=== PATIENT | male | born 1985 | race Caucasian/White ===

== ENCOUNTER 2016-11-24 01:57 | Observation (INO) | payer OTHER ==
[2016-11-24] MEDS ORDERED: Sodium Chloride 0.9% 1,000 ML IV ONE (02:33)
[2016-11-24] MEDS ORDERED: Pantoprazole 80 MG in Sodium Chloride 0.9% 10 ML IVPUSH ONE (02:33)
[2016-11-24] MEDS ORDERED: Sodium Chloride 0.9% 2.5 ML Syringe FLUSH PRN (02:37)
[2016-11-24] MEDS ORDERED: Sodium Chloride 0.9% 10 ML Syringe FLUSH PRN (02:37)
--- NOTE | 2016-11-24 02:37 | EDM.PDOC ---
ED HPI GENERAL MEDICAL PROBLEM - General Chief Complaint: Gastrointestinal Problem Stated Complaint: VOMITING BLOOD Time Seen by Provider: 11/24/16 02:33 - History of Present Illness INITIAL COMMENTS - FREE TEXT/NARRATIVE: HISTORY AND PHYSICAL: History of present illness: Patient's 31-year-old white male history of alcohol abuse who presents with a concern of vomiting blood he states this was a large amount as witnessed by his fiance has had intermittent black stools he states is long-standing problem over years. He does agree to evaluation treatment and admission if indicated Review of systems: As per history of present illness and below otherwise all systems reviewed and negative. Past medical history: As per history of present illness and as reviewed below otherwise noncontributory. Surgical history: As per history of present illness and as reviewed below otherwise noncontributory. Social history: No reported history of drug or alcohol abuse. Family history: As per history of present illness and as reviewed below otherwise noncontributory. Physical exam: HEENT: Atraumatic, normocephalic, pupils reactive, negative for conjunctival pallor or scleral icterus, mucous membranes moist, throat clear, neck supple, nontender, trachea midline. Lungs: Clear to auscultation, breath sounds equal bilaterally, chest nontender. Heart: S1S2, regular, negative for clicks, rubs, or JVD. Abdomen: Soft, nondistended, nontender. Negative for masses or hepatosplenomegaly. Negative for costovertebral tenderness. Pelvis: Stable nontender. Genitourinary: Deferred. Rectal: Deferred. Extremities: Atraumatic, negative for cords or calf pain. Neurovascular unremarkable. Neuro: Awake, alert, oriented. Cranial nerves II through XII unremarkable. Cerebellum unremarkable. Motor and sensory unremarkable throughout. Exam nonfocal. Diagnostics: CBC CMP PT/INR EtOH chest x-ray type and screen Therapeutics: NG tube Protonix 80 mg IV saline 1 L bolus Impression: #1 GI bleed Definitive disposition and diagnosis as appropriate pending reevaluation and review of above. - Related Data Allergies Allergy/AdvReac Type Severity Reaction Status Date / Time No Known Allergies Allergy Verified 11/24/16 02:18 Home Meds: Home Meds . [No Known Home Meds] 11/24/16 [History] Past Medical History - Past Health History Medical/Surgical History: Denies Medical/Surgical History HEENT History: Reports: None Cardiovascular History: Reports: None Respiratory History: Reports: None Gastrointestinal History: Reports: None Genitourinary History: Reports: None Musculoskeletal History: Reports: None Neurological History: Reports: None Psychiatric History: Reports: None Endocrine/Metabolic History: Reports: None Hematologic History: Reports: None Dermatologic History: Reports: None - Infectious Disease History Infectious Disease History: Reports: None - Past Surgical History Male Surgical History: Reports: None Social & Family History - Family History Family Medical History: Noncontributory - Tobacco Use Smoking Status *Q: Current Every Day Smoker Years of Tobacco use: 10 Packs/Tins Daily: 1 - Recreational Drug Use Recreational Drug Use: No ED ROS GENERAL - Review of Systems Review Of Systems: ROS reveals no pertinent complaints other than HPI. ED EXAM, GENERAL - Physical Exam Exam: See Below (See dictation) Course - Vital Signs Last Recorded V/S: Last Vital Signs Temp 35.7 C 11/24/16 02:18 Pulse 72 11/24/16 02:18 Resp 20 11/24/16 02:18 BP 131/83 11/24/16 02:18 Pulse Ox 96 11/24/16 02:18 - Orders/Labs/Meds Orders: Active Orders 24 hr Category Date Time Status Abdomen 1V Flat [CR] Stat Exams 11/24/16 02:33 Ordered Sodium Chloride 0.9% [Saline Flush] Med 11/24/16 02:37 Active 10 ml FLUSH ASDIRECTED PRN Sodium Chloride 0.9% [Saline Flush] Med 11/24/16 02:37 Active 2.5 ml FLUSH ASDIRECTED PRN NG [Nasogastric Orogastric Tube Insertion] [OM.PC] Stat Oth 11/24/16 02:35 Ordered Saline Lock Insert [OM.PC] Stat Oth 11/24/16 02:37 Ordered Medication Orders Sodium Chloride (Saline Flush) 10 ml FLUSH ASDIRECTED PRN PRN Reason: Keep Vein Open Last Admin: 11/24/16 02:50 Dose: 10 ml Sodium Chloride (Saline Flush) 2.5 ml FLUSH ASDIRECTED PRN PRN Reason: Keep Vein Open Last Admin: 11/24/16 02:51 Dose: 2.5 ml Labs: Laboratory Tests 11/24/16 11/24/16 11/24/16 Range/Units 02:47 02:47 02:47 WBC 9.90 (4.0-11.0) K/uL RBC 5.01 (4.50-5.90) M/uL Hgb 16.2 (13.0-17.0) g/dL Hct 47.9 (38.0-50.0) % MCV 95.6 (80.0-98.0) fL MCH 32.3 H (27.0-32.0) pg MCHC 33.8 (31.0-37.0) g/dL RDW Std Deviation 44.6 (28.0-62.0) fl RDW Coeff of Tory 13 (11.0-15.0) % Plt Count 224 (150-400) K/uL MPV 11.50 (7.40-12.00) fL Neut % (Auto) 58.4 (48.0-80.0) % Lymph % (Auto) 27.9 (16.0-40.0) % Bracken % (Auto) 11.9 (0.0-15.0) % Eos % (Auto) 1.4 (0.0-7.0) % Baso % (Auto) 0.4 (0.0-1.5) % Neut # (Auto) 5.8 H (1.4-5.7) K/uL Lymph # (Auto) 2.8 H (0.6-2.4) K/uL Bracken # (Auto) 1.2 H (0.0-0.8) K/uL Eos # (Auto) 0.1 (0.0-0.7) K/uL Baso # (Auto) 0.0 (0.0-0.1) K/uL Nucleated RBC % 0.0 /100WBC Nucleated RBCs # 0 K/uL INR 0.96 (0.86-1.11) Sodium 140 (136-146) mmol/L Potassium 3.4 L (3.5-5.1) mmol/L Chloride 105 (98-110) mmol/L Carbon Dioxide 25 (21-31) mmol/L BUN 9 (6.0-23.0) mg/dL Creatinine 1.0 (0.6-1.5) mg/dL Est Cr Clr Drug Dosing 137.36 mL/min Estimated GFR (MDRD) > 60.0 ml/min Glucose 129 H (60-110) mg/dL Calcium 9.0 (8.8-10.8) mg/dL Total Bilirubin 0.3 (0.1-1.5) mg/dL AST 45 H (5-40) IU/L ALT 60 H (8-54) IU/L Alkaline Phosphatase 83 (40-150) Total Protein 7.4 (6.0-8.0) g/dL Albumin 4.2 (3.5-5.0) g/dL Globulin 3.2 (2.0-3.5) g/dL Albumin/Globulin Ratio 1.3 (1.3-2.8) Lipase 69 (7-80) U/L Ethyl Alcohol 243.3 mg/dL Blood Type Antibody Screen 11/24/16 Range/Units 02:47 WBC (4.0-11.0) K/uL RBC (4.50-5.90) M/uL Hgb (13.0-17.0) g/dL Hct (38.0-50.0) % MCV (80.0-98.0) fL MCH (27.0-32.0) pg MCHC (31.0-37.0) g/dL RDW Std Deviation (28.0-62.0) fl RDW Coeff of Tory (11.0-15.0) % Plt Count (150-400) K/uL MPV (7.40-12.00) fL Neut % (Auto) (48.0-80.0) % Lymph % (Auto) (16.0-40.0) % Bracken % (Auto) (0.0-15.0) % Eos % (Auto) (0.0-7.0) % Baso % (Auto) (0.0-1.5) % Neut # (Auto) (1.4-5.7) K/uL Lymph # (Auto) (0.6-2.4) K/uL Bracken # (Auto) (0.0-0.8) K/uL Eos # (Auto) (0.0-0.7) K/uL Baso # (Auto) (0.0-0.1) K/uL Nucleated RBC % /100WBC Nucleated RBCs # K/uL INR (0.86-1.11) Sodium (136-146) mmol/L Potassium (3.5-5.1) mmol/L Chloride (98-110) mmol/L Carbon Dioxide (21-31) mmol/L BUN (6.0-23.0) mg/dL Creatinine (0.6-1.5) mg/dL Est Cr Clr Drug Dosing mL/min Estimated GFR (MDRD) ml/min Glucose (60-110) mg/dL Calcium (8.8-10.8) mg/dL Total Bilirubin (0.1-1.5) mg/dL AST (5-40) IU/L ALT (8-54) IU/L Alkaline Phosphatase (40-150) Total Protein (6.0-8.0) g/dL Albumin (3.5-5.0) g/dL Globulin (2.0-3.5) g/dL Albumin/Globulin Ratio (1.3-2.8) Lipase (7-80) U/L Ethyl Alcohol mg/dL Blood Type O POSITIVE Antibody Screen NEGATIVE Meds: Medications Generic Name Dose Route Start Last Admin Trade Name Kayley PRN Reason Stop Dose Admin Sodium Chloride 10 ml 11/24/16 02:37 11/24/16 02:50 Saline Flush FLUSH 10 ml ASDIRECTED PRN Administration Keep Vein Open Sodium Chloride 2.5 ml 11/24/16 02:37 11/24/16 02:51 Saline Flush FLUSH 2.5 ml ASDIRECTED PRN Administration Keep Vein Open Discontinued Medications Generic Name Dose Route Start Last Admin Trade Name Kayley PRN Reason Stop Dose Admin Pantoprazole Sodium 80 mg/ 10 mls @ 300 mls/hr 11/24/16 02:33 11/24/16 03:17 Sodium Chloride IVPUSH 11/24/16 02:34 300 mls/hr NOW ONE Administration Sodium Chloride 1,000 mls @ 999 mls/hr 11/24/16 02:33 11/24/16 03:05 Normal Saline IV 11/24/16 03:33 999 mls/hr STAT ONE Administration Lorazepam 1 mg 11/24/16 02:44 11/24/16 03:40 Ativan IVPUSH 11/24/16 02:45 Not Given ONETIME ONE Departure - Departure Time of Disposition: 03:50 Disposition: Refer to Observation Condition: Good Clinical Impression: GI bleed, Alcohol abuse - Discharge Information Referrals: PCP,None [Primary Care Provider] - Forms: ED Department Discharge - My Orders Last 24 Hours: My Active Orders 11/24/16 02:33 Abdomen 1V Flat [CR] Stat 11/24/16 02:35 NG [Nasogastric Orogastric Tube Insertion] [OM.PC] Stat 11/24/16 02:37 Sodium Chloride 0.9% [Saline Flush] 10 ml FLUSH ASDIRECTED PRN Sodium Chloride 0.9% [Saline Flush] 2.5 ml FLUSH ASDIRECTED PRN Saline Lock Insert [OM.PC] Stat - Assessment/Plan Last 24 Hours: My Active Orders 11/24/16 02:33 Abdomen 1V Flat [CR] Stat 11/24/16 02:35 NG [Nasogastric Orogastric Tube Insertion] [OM.PC] Stat 11/24/16 02:37 Sodium Chloride 0.9% [Saline Flush] 10 ml FLUSH ASDIRECTED PRN Sodium Chloride 0.9% [Saline Flush] 2.5 ml FLUSH ASDIRECTED PRN Saline Lock Insert [OM.PC] Stat
[2016-11-24] MEDS ORDERED: LORazepam 2 MG/ML MDV IVPUSH ONE (02:44)
[2016-11-24 03:18] LABS: CHLORIDE,CL 105 mmol/L (98-110); SODIUM,NA 140 mmol/L (136-146)
[2016-11-24] MEDS ORDERED: Pantoprazole 80 MG in Sodium Chloride 0.9% 100 ML IV SCH ×2 (04:15→15:30)
[2016-11-24] MEDS ORDERED: LORazepam 2 MG/ML MDV IVPUSH PRN (05:39)
[2016-11-24] MEDS ORDERED: Sodium Chloride 0.9% with KCl 1,000 ML IV SCH (05:45)
[2016-11-24] MEDS ORDERED: Sodium Chloride 0.9% 1,000 ML IV SCH (05:45)
[2016-11-24] MEDS ORDERED: Folic Acid 50 MG/10 ML MDV SUBCUT SCH (09:00)
[2016-11-24] MEDS ORDERED: Thiamine 100 MG in Sodium Chloride 0.9% 50 ML IV SCH (09:00)
[2016-11-24] MEDS ORDERED: Thiamine 200 MG/2 ML MDV IV SCH (09:00)
--- NOTE | 2016-11-24 10:05 | PCM.HP ---
H&P History of Present Illness - General Date of Service: 11/24/16 Admit Problem/Dx: Admission Diagnosis/Problem Admission Diagnosis/Problem GI bleed not requiring more than 4 units of blood in 24 hours, ICU, or surgery Source of Information: Patient History Limitations: Reports: No Limitations - History of Present Illness Initial Comments - Free Text/Narative: This 31 year old male with little pmh presented to the ED last evening after 1 episode of vomiting blood. which he and his fiance noted as " alot", estimated 250 ml. He reports this happens every couple weeks in small to large amounts and has been happening for approximately 2 years, but this time his fiance saw it and was concerned. He reports having severe heartburn daily and it worsens with any food he eats especially spicy foods. He does drink alcohol daily ranging from "a couple beers to a handful of mixed drinks." "I am not an alcoholic, I can stop drinking whenever I want." He reports he feels shaky in the mornings after drinking heavily, doesn't drink in the morning to relieve this. He has never withdrawn from alcohol. He has not had EGD in the past and has not sought medical treatment from bloody emesis. He does chew 1- 1 1/2 tins daily and no recreational drug use. In the ED Hgb 16.2, AST and ALT slightly elevated. NG tube was placed in the ED , with clear blood streaked secretions noted and later removed. Abd xray negative. He was admitted for GI bleed. Give Protonix bolus then placed on protonic gtt. - Related Data Allergies/Adverse Reactions: Allergies Allergy/AdvReac Type Severity Reaction Status Date / Time No Known Allergies Allergy Verified 11/24/16 02:18 Home Medications: Home Meds Pantoprazole Sodium [Protonix] 40 mg PO BID #60 tablet. 11/24/16 [Rx] Sucralfate [Carafate] 1 gm PO QIDACANDBED #120 tablet 11/24/16 [Rx] Past Medical History - Past Health History Medical/Surgical History: Denies Medical/Surgical History HEENT History: Reports: None Cardiovascular History: Reports: None. Denies: Blood Clots/VTE/DVT, High Cholesterol, Hypertension, [place] Respiratory History: Reports: None. Denies: Asthma, COPD, PE, SOB Gastrointestinal History: Reports: GERD Genitourinary History: Reports: None. Denies: Acute Renal Failure, Chronic Renal Insuffiency Musculoskeletal History: Reports: None Neurological History: Reports: None Psychiatric History: Reports: None Endocrine/Metabolic History: Reports: Obesity/BMI 30+. Denies: Diabetes, Type II Hematologic History: Reports: None Dermatologic History: Reports: None - Infectious Disease History Infectious Disease History: Reports: None - Past Surgical History GI Surgical History: Reports: Other (See Below) (some abdominal surgery at 1 mo old, unsure what they did. "netting around liver.") Male Surgical History: Reports: None Social & Family History - Family History Family Medical History: Noncontributory - Tobacco Use Smoking Status *Q: Current Every Day Smoker Tobacco Use Within Last Twelve Months: Smokeless Tobacco Years of Tobacco use: 15 Packs/Tins Daily: 1.5 - Caffeine Use Caffeine Use: Reports: Tea - Alcohol Use Days Per Week of Alcohol Use: 3 Number of Drinks Per Day: 7 Total Drinks Per Week: 21 Alcohol Use Frequency: Daily - Recreational Drug Use Recreational Drug Use: No - Living Situation & Occupation Living situation: Reports: with Significant Other Occupation: Employed H&P Review of Systems - Review of Systems: Review Of Systems: See Below General: Reports: No Symptoms. Denies: Fever, Chills, Malaise, Weakness HEENT: Reports: No Symptoms. Denies: Headaches, Sore Throat Pulmonary: Reports: No Symptoms. Denies: Shortness of Breath, Cough, Sputum Cardiovascular: Reports: No Symptoms. Denies: Chest Pain, Dyspnea on Exertion Gastrointestinal: Reports: Black Stool, Vomiting (1 episode at home, none since admission). Denies: Abdominal Pain, Diarrhea, Nausea Genitourinary: Reports: No Symptoms. Denies: Dysuria, Frequency, Burning Musculoskeletal: Reports: No Symptoms. Denies: Back Pain Skin: Reports: No Symptoms Psychiatric: Reports: No Symptoms Neurological: Reports: No Symptoms Hematologic/Lymphatic: Reports: No Symptoms Immunologic: Reports: No Symptoms Exam - Exam Exam: See Below - Vital Signs Vital Signs: Last Vital Signs Temp 98.3 F 11/24/16 08:00 Pulse 67 11/24/16 08:00 Resp 16 11/24/16 08:00 BP 128/67 11/24/16 08:00 Pulse Ox 97 11/24/16 08:00 Weight: 125.963 kg - Exam General: Alert, Oriented, Cooperative Neck: Supple, Trachea Midline, 2 Lungs: Clear to Auscultation, Normal Respiratory Effort Cardiovascular: Regular Rate, Regular Rhythm GI/Abdominal Exam: Normal Bowel Sounds, Soft, Non-Tender, No Organomegaly, No Distention, No Abnormal Bruit, No Mass, Pelvis Stable Extremities: Normal Inspection, Normal Range of Motion, Non-Tender, No Pedal Edema, Normal Capillary Refill Neuro Extensive - Mental Status: Alert, Oriented x3, Normal Mood/Affect, Normal Cognition, Memory Intact Neuro Extensive - Motor, Sensory, Reflexes: CN II-XII Intact, Normal Gait, Normal Reflexes Psychiatric: Alert, Normal Affect, Normal Mood - Patient Data Result Diagrams: 11/24/16 11:40 11/24/16 02:47 *Q Meaningful Use (ADM) - VTE *Q VTE Criteria *Q: - Stroke *Q Stroke Criteria *Q: - AMI *Q AMI Criteria *Q: - Problem List (1) Alcohol abuse SNOMED Code(s): 83503947 ICD Code: F10.10 - ALCOHOL ABUSE, UNCOMPLICATED Status: Acute Current Visit: Yes (2) GI bleed SNOMED Code(s): 11674055 ICD Code: K92.2 - GASTROINTESTINAL HEMORRHAGE, UNSPECIFIED Status: Acute Current Visit: Yes Problem List Initiated/Reviewed/Updated: Yes Orders Last 24hrs: Active Orders 24 hr Category Date Time Status CIWAA Assessment [RC] Q4H Care 11/24/16 05:39 Active Nothing Per Oral Diet [DIET] Diet 11/24/16 Breakfast Active Folic Acid Med 11/24/16 09:00 Active 1 mg SUBCUT DAILY LORazepam [Ativan] Med 11/24/16 05:39 Active See Protocol IVPUSH Q4H PRN Pantoprazole [ProTONIX IV] 80 mg Med 11/24/16 04:15 Active Sodium Chloride 0.9% [Normal Saline] 100 ml IV .Continuous Pantoprazole [ProTONIX IV] 80 mg Med 11/24/16 15:30 Active Sodium Chloride 0.9% [Normal Saline] 100 ml IV Q10H Sodium Chloride 0.9% [Normal Saline] 1,000 ml Med 11/24/16 05:45 Active IV ASDIRECTED Sodium Chloride 0.9% with KCl [Normal Saline with 40 Med 11/24/16 05:45 Active mEq KCl] 1,000 ml IV ASDIRECTED Thiamine [Vitamin B-1] 100 mg Med 11/24/16 09:00 Active Sodium Chloride 0.9% [Normal Saline] 50 ml IV DAILY Nasogastric Orogastric Tube Removal [OM.PC] Routine Oth 11/24/16 05:39 Ordered Medication Orders Folic Acid (Folic Acid) 1 mg SUBCUT DAILY RONNI Pantoprazole Sodium 80 mg/ (Sodium Chloride) 100 mls @ 10 mls/hr IV .Continuous RONNI Stop: 11/24/16 15:30 Last Admin: 11/24/16 05:17 Dose: 10 mls/hr Sodium Chloride (Normal Saline) 1,000 mls @ 125 mls/hr IV ASDIRECTED RONNI Potassium Chloride/Sodium Chloride (Normal Saline With 40 Meq Kcl) 1,000 mls @ 125 mls/hr IV ASDIRECTED RONNI Stop: 11/24/16 13:44 Last Admin: 11/24/16 06:14 Dose: 125 mls/hr Pantoprazole Sodium 80 mg/ (Sodium Chloride) 100 mls @ 10 mls/hr IV Q10H RONNI Thiamine HCl 100 mg/ Sodium (Chloride) 51 mls @ 204 mls/hr IV DAILY RONNI Lorazepam (Ativan) 0 mg IVPUSH Q4H PRN; Protocol PRN Reason: Agitation Sodium Chloride (Saline Flush) 10 ml FLUSH ASDIRECTED PRN PRN Reason: Keep Vein Open Last Admin: 11/24/16 02:50 Dose: 10 ml Sodium Chloride (Saline Flush) 2.5 ml FLUSH ASDIRECTED PRN PRN Reason: Keep Vein Open Last Admin: 11/24/16 02:51 Dose: 2.5 ml Assessment/Plan Comment:: This 31 year old male admitted with GI bleed 1. GI bleed: Continue Protonix gtt, placed on NPO. Awaiting consult from general surgeon. Likely alcohol induced gastris, possibly ulcer. Monitor HH 2. Alcohol abuse: CIWAA protocol with Thiamine and Folic acid supplementation. VTE prophylaxis: SCDs Dispo: 1-2 days pending improvement DISCHARGE DIAGNOSES: GI bleeding- resolved, stable Alcohol abuse Ananth was observed today. No further episodes of vomiting. Hgb at noon 14.8. He is requesting discharge. Dr. Diaz was not able to consult prior to discharge. Dr. Diaz suggested follow up as outpatient for endoscopy. I will send patient home with Protonix and Carafate x 1 month and to follow up with Dr. Diaz in next 1 week. He is to abstain from alcohol. Fiance at bedside. He is to return to ED or clinic if concerns should arise.
[2016-11-24] MEDS ORDERED: Ondansetron 4 MG/2 ML SDV IVPUSH PRN (11:05)
[2016-11-24] MEDS ORDERED: Sucralfate Suspension 1 GM/10 ML Cup PO SCH (14:15)
[2016-11-24 14:38] VITALS: BP 122/74
--- NOTE | 2016-11-24 15:32 | CR ---
EXAM DATE: 11/24/16 PATIENT'S AGE: 31 Patient: TOBY HAMEED Facility: [place], [place] Site . Site : [id number] Study: XRay Abdomen [id number]/28/2017 3:57:32 AM Ordering Physician: Randolph Gaines Final Report: INDICATION: NG tube placement. TECHNIQUE: Portable abdomen one view. COMPARISON: None. IMPRESSION: Enteric tube terminates in the fundus of the stomach. Bowel gas pattern is nonobstructive. Dictated by Carlos Arguelles MD @ 11/24/2016 4:06:55 AM Dictated by: Carlos Arguelles MD @ 11/24/2016 04:07:02 (Electronic Signature) Report Signed by Proxy. TERRA
== END 2016-11-24 15:20 | disposition home or self-care (01) ==
LOC: MW.ED 01:57 → MW.MS 04:00
PROVIDERS: ADMIT Internal Medicine; ATTEND Internal Medicine
DX: K92.2 Gastrointestinal hemorrhage, unspecified (principal); F10.10 Alcohol abuse, uncomplicated; K21.9 Gastro-esophageal reflux disease without esophagitis; F17.210 Nicotine dependence, cigarettes, uncomplicated; Z79.899 Other long term (current) drug therapy; Z98.890 Other specified postprocedural states
CPT/HCPCS: 43753; 74000; 80053; 81001; 83690; 85014; 85018; 85025; 85610; 86850; 86900; 86901; 96361; 96374; 99285; A9270; C9113; G0480; J3411; J3480; J7030; J7040; J7050; 96365; 96366; 96368; 96375; 99283; G0378

== ENCOUNTER 2017-02-28 12:41 | Emergency (ER) | payer OTHER, SELFPAY ==
[2017-02-28 13:04] VITALS: BP 122/66
[2017-02-28] MEDS ORDERED: Ketorolac 60 MG/2 ML SDV IM ONE (13:16)
[2017-02-28] MEDS ORDERED: Sodium Chloride 0.9% 10 ML Syringe FLUSH PRN (13:16)
[2017-02-28] MEDS ORDERED: Sodium Chloride 0.9% 2.5 ML Syringe FLUSH PRN (13:16)
--- NOTE | 2017-02-28 14:37 | EDM.PDOC ---
ED HPI GENERAL MEDICAL PROBLEM - General Chief Complaint: Back Pain or Injury Stated Complaint: BACK PAIN Time Seen by Provider: 02/28/17 13:06 Source of Information: Reports: Patient History Limitations: Reports: No Limitations - History of Present Illness INITIAL COMMENTS - FREE TEXT/NARRATIVE: HISTORY AND PHYSICAL: []31-year-old male presenting with back pain History of Present Illness: []Patient has history of working on a rigs, as a patient financial coordinator. His complaint is of mid back pain He has hasn't had a cough cold symptoms for over a week this area getting better Review of Systems: As per history of present illness and below otherwise all systems reviewed and negative. Past medical history: As per history of present illness and as reviewed below otherwise noncontributory. Surgical history: As per history of present illness and as reviewed below otherwise noncontributory. Social history: No reported history of drug or alcohol abuse. Family history: As per history of present illness and as reviewed below otherwise noncontributory. Physical exam: Alert and oriented man who answers questions appropriately except in full sentences HEENT: Atraumatic, normocehpalic, pupils reactive, negative for conjunctival pallor or scleral icterus, mucous membranes moist, throat clear, neck supple, nontender, trachea midline. Lungs: Crackles on auscultation, breath sounds equal bilaterally, chest non tender. Heart: S1S2, regular, negative for clicks, rubs, or JVD. Abdomen: Soft, nondistended, nontender. Negative for masses or hepatossplenmegaly. Negative for costovertebral tenderness. Back: No edema is noted from the T7-8-9 extending towards his side the right. Tender to palpation. No ecchymosis or injury reported Pelvis: Stable nontender. Genitourinary: Deferred. Rectal: Deferred Extremities: Atraumatic, negative for cords or calf pain. Neurovascular unremarkable. Neuro: Awake, alert, oriented. Cranial nerves II through XII unremarkable. Cerebellum unremarkable. Motor and sensory unremarkable throughout. Exam nonfocal. X-ray was refused by patient Diagnostics: [] Therapeutics: [Toradol 60 IM] Impression: [Muscle strain to mid back on the right] Plan: [Discharged to home Anti-inflammatories such as ibuprofen or Aleve] Follow-up with your primary care provider Definitive disposition and diagnosis as appropriate pending reevaluation and review of above. Onset: Gradual Duration: Day(s): back Pain Score (Numeric/FACES): 6 - Related Data Allergies Allergy/AdvReac Type Severity Reaction Status Date / Time No Known Allergies Allergy Verified 02/28/17 12:58 Home Meds: Home Meds . [No Known Home Meds] 02/28/17 [History] Past Medical History - Past Health History Medical/Surgical History: Denies Medical/Surgical History HEENT History: Reports: None Cardiovascular History: Reports: None Respiratory History: Reports: None Gastrointestinal History: Reports: GERD Genitourinary History: Reports: None Musculoskeletal History: Reports: None Neurological History: Reports: None Psychiatric History: Reports: None Endocrine/Metabolic History: Reports: Obesity/BMI 30+ Hematologic History: Reports: None Dermatologic History: Reports: None - Infectious Disease History Infectious Disease History: Reports: None - Past Surgical History GI Surgical History: Reports: Other (See Below) Male Surgical History: Reports: None Social & Family History - Family History Family Medical History: Noncontributory - Tobacco Use Smoking Status *Q: Light Tobacco Smoker Years of Tobacco use: 4 Packs/Tins Daily: 0 - Caffeine Use Caffeine Use: Reports: Tea - Alcohol Use Days Per Week of Alcohol Use: 3 Number of Drinks Per Day: 2 Total Drinks Per Week: 6 - Recreational Drug Use Recreational Drug Use: No - Living Situation & Occupation Living situation: Reports: with Significant Other Occupation: Employed ED ROS GENERAL - Review of Systems Review Of Systems: ROS reveals no pertinent complaints other than HPI. ED EXAM,LOWER BACK PAIN/INJURY - Physical Exam Exam: See Below (see dictation) Course - Vital Signs Last Recorded V/S: Last Vital Signs Temp 36.4 C 02/28/17 12:58 Pulse 78 02/28/17 12:58 Resp 18 02/28/17 12:58 BP 122/66 02/28/17 12:58 Pulse Ox 99 02/28/17 12:58 - Orders/Labs/Meds Meds: Medications Discontinued Medications Generic Name Dose Route Start Last Admin Trade Name Freq PRN Reason Stop Dose Admin Ketorolac Tromethamine 60 mg 02/28/17 13:16 02/28/17 13:37 Toradol IM 02/28/17 13:17 60 mg ONETIME ONE Administration Sodium Chloride 10 ml 02/28/17 13:16 Saline Flush FLUSH ASDIRECTED PRN Keep Vein Open Sodium Chloride 2.5 ml 02/28/17 13:16 Saline Flush FLUSH ASDIRECTED PRN Keep Vein Open Departure - Departure Time of Disposition: 14:37 Disposition: Home, Self-Care 01 Condition: Good Clinical Impression: Back pain Qualifiers: Back pain location: thoracic back pain Chronicity: acute Back pain laterality: right Qualified Code(s): M54.6 - Pain in thoracic spine - Discharge Information Instructions: Back Injury Prevention, [id number], Muscle Strain, [id number] Referrals: PCP,None [Primary Care Provider] - Additional Instructions: The following information is given to patients seen in the emergency department who are being discharged to home. This information is to outline your options for follow-up care. We provide all patients seen in our emergency department with a follow-up referral. The need for follow-up, as well as the timing and circumstances, are variable depending upon the specifics of your emergency department visit. If you don't have a primary care physician on staff, we will provide you with a referral. We always advise you to contact your personal physician following an emergency department visit to inform them of the circumstance of the visit and for follow-up with them and/or the need for any referrals to a consulting specialist. The emergency department will also refer you to a specialist when appropriate. This referral assures that you have the opportunity for followup care with a specialist. All of these measure are taken in an effort to provide you with optimal care, which includes your followup. Under all circumstances we always encourage you to contact your private physician who remains a resource for coordinating your care. When calling for followup care, please make the office aware that this follow-up is from your recent emergency room visit. If for any reason you are refused follow-up, please contact the [facility] emergency department at and asked to speak to the emergency department charge nurse. Been found to have a muscle strain to your back causing this pain is likely from overuse injury due to the type of work that you ingage in Please follow-up with primary care provider [id number] anti-inflammatory such as Aleve or ibuprofen
== END 2017-02-28 14:48 | disposition home or self-care (01) ==
LOC: MW.ED 12:41
DX: S29.012A Strain of muscle and tendon of back wall of thorax, initial encounter (principal); F17.210 Nicotine dependence, cigarettes, uncomplicated; X58.XXXA Exposure to other specified factors, initial encounter
CPT/HCPCS: 87804; 96372; 99283; J1885

== ENCOUNTER 2017-05-31 20:30 | Emergency (ER) | payer BC, OTHER ==
[2017-05-31] MEDS ORDERED: Ketorolac 60 MG/2 ML SDV IM ONE (21:13)
--- NOTE | 2017-05-31 21:14 | EDM.PDOC ---
ED HPI GENERAL MEDICAL PROBLEM - General Chief Complaint: Back Pain or Injury Stated Complaint: BACK PAIN Time Seen by Provider: 05/31/17 21:13 Source of Information: Reports: Patient - History of Present Illness INITIAL COMMENTS - FREE TEXT/NARRATIVE: HISTORY AND PHYSICAL: History of present illness: [Clarification nurse's notes states abdominal pain for one year, this is not actually E has chronic intermittent low back pain over the last 1 year. 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 which is probably similar or even worse for low back pain patient, carrying joints of type using large 36 inch to 48 inch pipe wrenches heavy lifting required and lots of back use However he has had some mild discomfort over the last week he has been at home essentially stationary over the last couple of days now pain is 8 out of 10 with some radiation to the level of the right posterior thigh No fever nausea vomiting chills sweats No saddle anesthesia footdrop or bowel or urine symptoms ] Review of systems: As per history of present illness and below otherwise all systems reviewed and negative. Past medical history: As per history of present illness and as reviewed below otherwise noncontributory. Surgical history: As per history of present illness and as reviewed below otherwise noncontributory. Social history: No reported history of drug or alcohol abuse. Family history: As per history of present illness and as reviewed below otherwise noncontributory. Physical exam: HEENT: Atraumatic, normocephalic, pupils reactive, negative for conjunctival pallor or scleral icterus, mucous membranes moist, throat clear, neck supple, nontender, trachea midline. Lungs: Clear to auscultation, breath sounds equal bilaterally, chest nontender. Heart: S1S2, regular, negative for clicks, rubs, or JVD. Abdomen: Soft, nondistended, nontender. Negative for masses or hepatosplenomegaly. Negative for costovertebral tenderness. Pelvis: Stable nontender. Genitourinary: Deferred. Rectal: Deferred. Extremities: Atraumatic, negative for cords or calf pain. Neurovascular unremarkable. Straight leg raise on the right reproduces pain or increases pain but not radiculopathy left is essentially asymptomatic to 30 Neuro: Awake, alert, oriented. Cranial nerves II through XII unremarkable. Cerebellum unremarkable. Motor and sensory unremarkable throughout. Exam nonfocal. Footdrop or saddle anesthesia Musculoskeletal mild vertebral point tenderness on the lumbar spine L4-L5 distribution most of his pain is right paraspinous muscle including the right flank with palpation I can appreciate some degree of spasm otherwise unremarkable Skin Diagnostics: [Lumbar spine plain films ] Therapeutics: [Toradol 60 IM Norflex 60 IM Keflex 500 by mouth twice a day #20 no refill Cataflam 50 mg by mouth 3 times a day when necessary #30 no refill Flexeril 10 mg by mouth 3 times a day when necessary #30 no refill Or primary care 2 weeks sooner as needed Ice whichever gains most benefit ] Impression: [Low back pain Paraspinous muscle spasm right greater than left Right sciatic distribution pain] Small sebaceous cyst which is infected between shoulder blades--girlfriend performed I&D Definitive disposition and diagnosis as appropriate pending reevaluation and review of above. lower back Pain Score (Numeric/FACES): 9 - Related Data Allergies Allergy/AdvReac Type Severity Reaction Status Date / Time No Known Allergies Allergy Verified 05/31/17 20:40 Home Meds: Home Meds . [No Known Home Meds] 02/28/17 [History] Past Medical History - Past Health History Medical/Surgical History: Denies Medical/Surgical History HEENT History: Reports: None Cardiovascular History: Reports: None Respiratory History: Reports: None Gastrointestinal History: Reports: GERD Genitourinary History: Reports: None Musculoskeletal History: Reports: Back Pain, Chronic Neurological History: Reports: None Psychiatric History: Reports: PTSD Endocrine/Metabolic History: Reports: Obesity/BMI 30+ Hematologic History: Reports: None Immunologic History: Reports: None Oncologic (Cancer) History: Reports: None Dermatologic History: Reports: None - Infectious Disease History Infectious Disease History: Reports: None - Past Surgical History Head Surgeries/Procedures: Reports: None GI Surgical History: Reports: Other (See Below) Male Surgical History: Reports: None Social & Family History - Family History Family Medical History: Noncontributory - Tobacco Use Smoking Status *Q: Current Some Day Smoker Years of Tobacco use: 10 Packs/Tins Daily: 0.3 - Caffeine Use Caffeine Use: Reports: Soda - Alcohol Use Days Per Week of Alcohol Use: 3 Number of Drinks Per Day: 2 Total Drinks Per Week: 6 - Recreational Drug Use Recreational Drug Use: No - Living Situation & Occupation Living situation: Reports: with Significant Other Occupation: Employed ED ROS GENERAL - Review of Systems Review Of Systems: ROS reveals no pertinent complaints other than HPI. ED EXAM, GENERAL - Physical Exam Exam: See Below Course - Vital Signs Last Recorded V/S: Last Vital Signs Temp 97 F 05/31/17 20:41 Pulse 94 05/31/17 20:41 Resp 18 05/31/17 20:41 BP 139/81 05/31/17 20:41 Pulse Ox 98 05/31/17 20:41 - Orders/Labs/Meds Orders: Active Orders 24 hr Category Date Time Status Lumbar Spine 2 or 3V [CR] Stat Exams 05/31/17 21:13 Taken Meds: Medications Discontinued Medications Generic Name Dose Route Start Last Admin Trade Name Rolfq PRN Reason Stop Dose Admin Ketorolac Tromethamine 60 mg 05/31/17 21:13 05/31/17 21:43 Toradol IM 05/31/17 21:14 60 mg ONETIME ONE Administration Orphenadrine Citrate 60 mg 05/31/17 21:13 05/31/17 21:41 Norflex IM 05/31/17 21:14 60 mg NOW STA Administration Departure - Departure Time of Disposition: 22:02 Disposition: Home, Self-Care 01 Condition: Good Clinical Impression: Sebaceous cyst, Low back pain, Spasm of lumbar paraspinous muscle - Discharge Information Referrals: PCP,None [Primary Care Provider] - Forms: ED Department Discharge Additional Instructions: Medication as prescribed Ice 20 minute intervals 3 times daily as needed Return if symptoms persist or worsen Follow-up with primary care in 2 weeks sooner as needed [facility] [address] [place] [address] The following information is given to patients seen in the emergency department who are being discharged to home. This information is to outline your options for follow-up care. We provide all patients seen in our emergency department with a follow-up referral. The need for follow-up, as well as the timing and circumstances, are variable depending upon the specifics of your emergency department visit. If you don't have a primary care physician on staff, we will provide you with a referral. We always advise you to contact your personal physician following an emergency department visit to inform them of the circumstance of the visit and for follow-up with them and/or the need for any referrals to a consulting specialist. The emergency department will also refer you to a specialist when appropriate. This referral assures that you have the opportunity for follow-up care with a specialist. All of these measure are taken in an effort to provide you with optimal care, which includes your follow-up. Under all circumstances we always encourage you to contact your private physician who remains a resource for coordinating your care. When calling for follow-up care, please make the office aware that this follow-up is from your recent emergency room visit. If for any reason you are refused follow-up, please contact the [facility] emergency department at and asked to speak to the emergency department charge nurse. - My Orders Last 24 Hours: My Active Orders 05/31/17 21:13 Lumbar Spine 2 or 3V [CR] Stat - Assessment/Plan Last 24 Hours: My Active Orders 05/31/17 21:13 Lumbar Spine 2 or 3V [CR] Stat
[2017-06-01 05:32] VITALS: BP 126/72
--- NOTE | 2017-06-01 08:24 | CR ---
EXAM DATE: 05/31/17 PATIENT'S AGE: 32 Patient: TOBY HAMEED Facility: [place], [place] Site . Site : 1985 Study: XRay Spine Lumbar [id number] 9:37:19 PM Ordering Physician: Joy Chavez Final Report: HISTORY: Low back pain. COMPARISON: None. FINDINGS: Mild scoliosis convex to the left. Vertebral body and disc space heights are preserved. No evidence for acute fracture or dislocation. Mild degenerative disc changes are noted at T11-12 with small anterior bony spur. Dictated by Skye Esposito MD @ May 31 2017 9:37PM (Electronic Signature) Report Signed by Proxy. TERRA
== END 2017-05-31 22:48 | disposition home or self-care (01) ==
LOC: MW.ED 20:30
DX: M54.41 Lumbago with sciatica, right side (principal); M62.830 Muscle spasm of back; L72.3 Sebaceous cyst; F17.210 Nicotine dependence, cigarettes, uncomplicated
CPT/HCPCS: 72100; 96372; 99283; J1885; J2360